=== PATIENT | female | born 1965 | race Caucasian/White ===

== ENCOUNTER 2017-01-16 15:12 | Emergency (ER) | payer OTHER ==
[2017-01-16] MEDS ORDERED: Zofran 4 MG/2 ML VIAL IV ONE (15:29)
[2017-01-16] MEDS ORDERED: Pepcid 20 MG VIAL IV ONE ×2 (15:29→15:36)
[2017-01-16] MEDS ORDERED: Sodium Chloride 0.9% 1000 ML 1,000 ML IV SCH (15:30)
[2017-01-16] MEDS ORDERED: BABY ASPIRIN 81 MG CHEW PO ONE (15:31)
[2017-01-16] MEDS ORDERED: BABY ASPIRIN 81 MG CHEW ONE (15:35)
--- NOTE | 2017-01-16 15:35 | ERPHSYRPT ---
- History of Present Illness Time Seen by Provider: 01/16/17 15:21 Source: patient Physician History: CC: V/D chest pain hx: 51 y/o patient of Dr Forrester. She has no hx of heart disease. She has had off and on chest pain for two months. Today it scared her and she did not feels right so came to ER. She has had vomiting and diarrhea since last night. She had 7 diarrhea today. She vomited several times. Not short of breath. No fever or chills. Normal urination. No injury. ALL: PCN ILL: Heart M, Diabetic Surg: Breast, hyster Social: Nonsmoker Fam: Mother nad grandmother had CHF, grandfather had heart attack. DVT. Allergies/Adverse Reactions: penicillin G Allergy (Intermediate, Verified 01/16/17 15:38) Home Medications: Alprazolam [Xanax] 0 mg PO UD 01/16/17 [History] Atenolol 0 mg PO DAILY 01/16/17 [History] Duloxetine HCl [Cymbalta] 0 mg PO DAILY 01/16/17 [History] Fenofibrate [Fenoglide] 0 mg PO DAILY 01/16/17 [History] Hydroxychloroquine Sulfate [Plaquenil] 200 mg PO DAILY 01/16/17 [History] Levothyroxine Sodium [Levo-T] 0 mcg PO DAILY 01/16/17 [History] Lisinopril 0 mg PO DAILY 01/16/17 [History] Metformin HCl 500 mg [Glucophage 500 MG] 500 mg PO BIDWM 01/16/17 [History ] Methotrexate Sodium/Pf [Methotrexate 100 mg/4 ml Vial] 0 mg IJ UD 01/16/17 [ History] Hx Tetanus, Diphtheria Vaccination/Date Given: No Hx Influenza Vaccination/Date Given: Yes Hx Pneumococcal Vaccination/Date Given: No - Review of Systems Constitutional: Malaise, Weakness, No Fever, No Chills Eyes: No Symptoms Respiratory: No Cough, No Dyspnea Cardiac: Chest Pain Abdominal/Gastrointestinal: Nausea, Vomiting, Diarrhea, No Abdominal Pain Genitourinary Symptoms: No Dysuria Musculoskeletal: No Back Pain Skin: No Rash Neurological: No Focal Weakness, No Headache, No Parasthesia All Other Systems: Reviewed and Negative - Past Medical History Pertinent Past Medical History: Yes Neurological History: Peripheral Neuropathy Cardiac History: Hypertension Respiratory History: No Pertinent History Endocrine Medical History: Diabetes Type II Musculoskeletal History: Rheumatoid Arthritis Female Reproductive Disorders: Ovarian Cancer Other Medical History: RA - Past Surgical History Past Surgical History: Yes Female Surgical History: Hysterectomy - Social History Smoking Status: Never smoker Exposure to second hand smoke: No Drug Use: none Patient Lives Alone: No - Nursing Vital Signs Nursing Vital Signs: Initial Vital Signs Temperature 99.1 F 01/16/17 15:15 Pulse Rate 90 01/16/17 15:15 Respiratory Rate 18 01/16/17 15:15 Blood Pressure 165/94 01/16/17 15:15 O2 Sat by Pulse Oximetry 97 01/16/17 15:15 Pain Scale Pain Intensity 0 - Physical Exam General Appearance: alert, other (pleasant lady) Eye Exam: PERRL/EOMI Ears, Nose, Throat Exam: normal ENT inspection, moist mucous membranes Neck Exam: normal inspection, non-tender, supple Respiratory Exam: normal breath sounds Cardiovascular Exam: regular rate/rhythm Gastrointestinal/Abdomen Exam: soft, No tenderness, No distention, No mass, No guarding Extremity Exam: normal inspection, normal range of motion, No calf tenderness, No pedal edema Neurologic Exam: alert, oriented x 3, cooperative, sensation nml, No motor deficits Skin Exam: warm, dry, No rash - Course Nursing assessment & vital signs reviewed: Yes EKG Interpreted by Me: RATE (89), Sinus Rhythm, NORMAL AXIS, NORMAL INTERVALS ( QTc 436), NORMAL QRS, NORMAL ST-T - Radiology Exams AAS X-ray Interpretation: Discussed w/ radiologist, Negative Ordered Tests: Active Orders 24 hr Category Date Time Status Cath for Specimen-Straight STAT Care 01/16/17 15:31 Active EKG-ER Only STAT Care 01/16/17 15:29 Active IV Insertion STAT Care 01/16/17 15:29 Active OBSTR/ACUTE ABDOMEN SERIES Stat Exams 01/16/17 15:30 Completed CBC W DIFF Stat Lab 01/16/17 15:47 Completed CMP Stat Lab 01/16/17 15:47 Completed TROPONIN Q3H Lab 01/16/17 15:50 Completed TROPONIN Q3H Lab 01/16/17 18:30 Completed TROPONIN Q3H Lab 01/16/17 21:30 Ordered TROPONIN Q3H Lab 01/17/17 00:30 Ordered TROPONIN Q3H Lab 01/17/17 03:30 Ordered UA W/RFX UR CULTURE Stat Lab 01/16/17 16:45 Completed Medication Summary Generic Name Dose Route Start Last Admin Trade Name Freq PRN Reason Stop Dose Admin Sodium Chloride 1,000 mls @ 500 mls/hr 01/16/17 15:30 01/16/17 15:37 Sodium Chloride 0.9% 1000 Ml IV 02/15/17 15:29 500 mls/hr .Q2H GRACE Administration Discontinued Medications Generic Name Dose Route Start Last Admin Trade Name Gómezq PRN Reason Stop Dose Admin Aspirin 162 mg 01/16/17 15:31 01/16/17 15:38 Baby Aspirin 81 Mg Chew PO 01/16/17 15:32 162 mg STAT ONE Administration Aspirin Confirm 01/16/17 15:35 Baby Aspirin 81 Mg Chew Administered 01/16/17 15:36 Dose 162 mg .ROUTE .STK-MED ONE Famotidine 20 mg 01/16/17 15:29 01/16/17 15:38 Pepcid 20 Mg Vial IV 01/16/17 15:30 20 mg STAT ONE Administration Famotidine Confirm 01/16/17 15:36 Pepcid 20 Mg Vial Administered 01/16/17 15:37 Dose 20 mg IV .STK-MED ONE Ondansetron HCl 4 mg 01/16/17 15:29 01/16/17 15:39 Zofran 4 Mg/2 Ml Vial IV 01/16/17 15:30 4 mg STAT ONE Administration Ondansetron HCl Confirm 01/16/17 15:39 Zofran 4 Mg/2 Ml Vial Administered 01/16/17 15:40 Dose 4 mg .ROUTE .STK-MED ONE Lab/Rad Data: Laboratory Result Diagrams 01/16/17 15:47 01/16/17 15:47 Laboratory Results 01/16/17 01/16/17 01/16/17 Range/Units 18:30 16:45 15:50 WBC (4.0-10.5) K/mm3 RBC (4.1-5.4) M/mm3 Hgb (12.0-16.0) gm/dl Hct (35-47) % MCV (78-100) fl MCH (26-32) pg MCHC (32-36) g/dl RDW (11.5-14.0) % Plt Count (150-450) K/mm3 MPV (6-9.5) fl Gran % (36.0-66.0) % Lymphocytes % (24.0-44.0) % Monocytes % (0.0-12.0) % Eosinophils % (0.00-5.0) % Basophils % (0.0-0.4) % Basophils # (0-0.4) Sodium (136-145) mEq/L Potassium (3.5-5.1) mEq/L Chloride (98-107) mEq/L Carbon Dioxide (21-32) mEq/L Anion Gap (5-15) MEQ/L BUN (9-20) mg/dL Creatinine (0.55-1.30) mg/dl Estimated GFR ML/MIN Glucose (70-110) MG/DL Calcium (8.5-10.1) mg/dL Total Bilirubin (0.2-1.0) mg/dL AST (15-37) U/L ALT (12-78) U/L Alkaline Phosphatase (46-116) U/L Troponin I < 0.017 < 0.017 (0.000-0.056) ng/ml Serum Total Protein (6.4-8.2) gm/dL Albumin (3.4-5.0) g/dL Ur Collection Type CCMS Urine Color YELLOW (YELLOW) Urine Appearance CLEAR (CLEAR) Urine pH 6.0 (5-6) Ur Specific [place] 1.015 (1.005-1.025) Urine Protein NEGATIVE (Negative) Urine Ketones NEGATIVE (NEGATIVE) Urine Blood NEGATIVE (0-5) Alexys/ul Urine Nitrite NEGATIVE (NEGATIVE) Urine Bilirubin NEGATIVE (NEGATIVE) Urine Urobilinogen NORMAL (0-1) mg/dL Ur Leukocyte Esterase NEGATIVE (NEGATIVE) Urine Glucose NEGATIVE (NEGATIVE) mg/dL Specimen Received 01-16-17 2995 01/16/17 01/16/17 Range/Units 15:47 15:47 WBC 10.0 (4.0-10.5) K/mm3 RBC 4.70 (4.1-5.4) M/mm3 Hgb 13.8 (12.0-16.0) gm/dl Hct 41.5 (35-47) % MCV 88.3 (78-100) fl MCH 29.4 (26-32) pg MCHC 33.3 (32-36) g/dl RDW 13.8 (11.5-14.0) % Plt Count 283 (150-450) K/mm3 MPV 10.4 H (6-9.5) fl Gran % 63.3 (36.0-66.0) % Lymphocytes % 28.6 (24.0-44.0) % Monocytes % 7.1 (0.0-12.0) % Eosinophils % 0.6 (0.00-5.0) % Basophils % 0.4 (0.0-0.4) % Basophils # 0.04 (0-0.4) Sodium 141 (136-145) mEq/L Potassium 3.7 (3.5-5.1) mEq/L Chloride 106 (98-107) mEq/L Carbon Dioxide 24.1 (21-32) mEq/L Anion Gap 14.7 (5-15) MEQ/L BUN 7 L (9-20) mg/dL Creatinine 0.82 (0.55-1.30) mg/dl Estimated GFR > 60 ML/MIN Glucose 117 H (70-110) MG/DL Calcium 9.1 (8.5-10.1) mg/dL Total Bilirubin 0.30 (0.2-1.0) mg/dL AST 24 (15-37) U/L ALT 38 (12-78) U/L Alkaline Phosphatase 86 (46-116) U/L Troponin I (0.000-0.056) ng/ml Serum Total Protein 7.9 (6.4-8.2) gm/dL Albumin 3.8 (3.4-5.0) g/dL Ur Collection Type Urine Color (YELLOW) Urine Appearance (CLEAR) Urine pH (5-6) Ur Specific [place] (1.005-1.025) Urine Protein (Negative) Urine Ketones (NEGATIVE) Urine Blood (0-5) Alexys/ul Urine Nitrite (NEGATIVE) Urine Bilirubin (NEGATIVE) Urine Urobilinogen (0-1) mg/dL Ur Leukocyte Esterase (NEGATIVE) Urine Glucose (NEGATIVE) mg/dL Specimen Received - Progress Progress Note: 01/16/17 18:17 AAS negative. She feels better. Will get second troponin. She wants to go home. 01/16/17 19:18 She still feels better. Repeat troponin undetectable. She wants to go home. Instr given. Counseled pt/family regarding: lab results, diagnosis, need for follow-up, rad results - Departure Time of Disposition: 19:21 Departure Disposition: Home Clinical Impression: Vomiting and diarrhea, Atypical chest pain Condition: Stable Critical Care Time: No Referrals: VIPUL FORRESTER [COURTESY STAFF] - Instructions: Atypical Chest Pain, Vomiting -- Adult, Diarrhea and Traveler's Diarrhea -- Adult Additional Instructions: Sip plenty of fluids. Rx zofran ODT. Follow up with Dr Forrester Thursday. No driving tonite. Prescriptions: Ondansetron [Zofran Odt] 4 mg PO Q6HPRN PRN #10 tab.rapdis PRN Reason: Nausea/Vomiting
[2017-01-16] MEDS ORDERED: Sodium Chloride 0.9% 1000 ML 1,000 ML ONE (15:36)
[2017-01-16] MEDS ORDERED: Zofran 4 MG/2 ML VIAL ONE (15:39)
[2017-01-16 15:55] LABS: BASOPHIL % 0.4 % (0.0-0.4); Eosinophil % 0.6 % (0.00-5.0); Granulocytes % 63.3 % (36.0-66.0); Lymphocytes % 28.6 % (24.0-44.0); Mean Cell Volume 88.3 fl (78-100); Mean Corpuscular Hemoglobin 29.4 pg (26-32); Mean Platelet Volume 10.4 fl (6-9.5); Monocytes % 7.1 % (0.0-12.0); Platelet Count 283 K/mm3 (150-450); Red Cell Distribution Width 13.8 % (11.5-14.0)
[2017-01-16 16:18] LABS: ALBUMIN 3.8 g/dL (3.4-5.0); ALKALINE PHOSPHATASE 86 U/L (46-116); ANION GAP 14.7 MEQ/L (5-15); BLOOD UREA NITROGEN 7 mg/dL (9-20); CHLORIDE 106 mEq/L (98-107); Carbon Dioxide 24.1 mEq/L (21-32); Glucose 117 MG/DL (70-110); Potassium 3.7 mEq/L (3.5-5.1); SGOT/AST 24 U/L (15-37); SGPT/ALT 38 U/L (12-78); SODIUM 141 mEq/L (136-145); Total Protein 7.9 gm/dL (6.4-8.2)
--- NOTE | 2017-01-16 16:25 | XRAY ---
Indication: Vomiting, diarrhea, and chest pain. Comparison: Chest radiograph January 11, 2010 2 views of the abdomen nonacute and nonobstructed. Solid organs and osseous structures unremarkable. Single PA chest again demonstrates normal heart, lungs, and bony thorax. Impression: Negative abdomen. Stable normal 1 view chest.
[2017-01-16 16:54] LABS: ADD URINE CULTURE? NO (NO); Bilirubin NEGATIVE (NEGATIVE); Blood NEGATIVE Ery/ul (0-5); COMPLETE URINE MICROSCOPIC? NO; Collection Type CCMS; Glucose NEGATIVE (NEGATIVE); Leukocyte Esterase NEGATIVE (NEGATIVE)
[2017-01-16 19:49] VITALS: BP 156/93; PULSE 89; O2SAT 97
== END 2017-01-16 19:42 | disposition home or self-care (01) ==
LOC: ED 15:12
DX: R11.2 Nausea with vomiting, unspecified (principal); R19.7 Diarrhea, unspecified; R07.89 Other chest pain; E11.9 Type 2 diabetes mellitus without complications; Z79.84 Long term (current) use of oral hypoglycemic drugs; R53.81 Other malaise; I10 Essential (primary) hypertension
CPT/HCPCS: 36000; 36415; 74022; 80053; 81002; 84484; 85025; 93005; 96360; 96361; 96374; 96375; 99284; J2405; P9612; A9270-GY

== ENCOUNTER 2019-08-31 14:07 | Emergency (ER) | payer MEDICAID ==
[2019-08-31] MEDS ORDERED: Adacel Vial IM ONE ×2 (14:26→14:33)
[2019-08-31] MEDS ORDERED: XYLOCAINE 1% HCL 20 ML MDV IJ ONE (14:26)
[2019-08-31 14:31] VITALS: BP 183/100; PULSE 115; O2SAT 98
[2019-08-31] MEDS ORDERED: XYLOCAINE 1% HCL 20 ML MDV ONE (14:33)
--- NOTE | 2019-08-31 14:44 | ERPHSYRPT ---
- History of Present Illness Time Seen by Provider: 08/31/19 14:20 Source: patient Exam Limitations: no limitations Patient Subjective Stated Complaint: Finger injury Triage Nursing Assessment: Patient ambulated into ED and transferred self to bed. Patient A+O X3. Patient's skin pink, warm and dry. Patient complains of left hand, 5th digit injury after tripping in her garage. Patient complains of pain 8/10 constant sharp pain. Patient unable to bend finger. Patient has cm X cm laceration to Laceration noted to below middle knuckle cm X cm Physician History: Patient is a 54-year-old female presents to our ED for evaluation of injury to her left fifth digit. Patient was at home tripped and landed on her garage floor. No other injuries reported. Injury occurred just prior to arrival. Pain described as an ache that is well localized. No radiation. Pain worse with movement and palpation. Pain improved with rest. No others reported. Patient voices no other complaints at this time. Tetanus is not up-to-date. Timing/Duration: today Severity: moderate Modifying Factors: Improves With: movement, rest Associated Symptoms: denies symptoms Allergies/Adverse Reactions: penicillin G Allergy (Intermediate, Verified 08/31/19 14:12) Home Medications: Atenolol 25 mg PO DAILY 01/16/17 [History] Duloxetine HCl [Cymbalta] 60 mg PO DAILY 01/16/17 [History] Fenofibrate [Fenoglide] 145 mg PO DAILY 01/16/17 [History] Levothyroxine Sodium [Levo-T] 25 mcg PO DAILY 01/16/17 [History] Metformin HCl 500 mg [Glucophage 500 MG] 500 mg PO BIDWM 01/16/17 [History ] lisinopriL [Lisinopril] 10 mg PO DAILY 01/16/17 [History] Adalimumab [Humira] 40 mg SQ UD 07/28/17 [History] Dicyclomine HCl 20 mg [Bentyl 20 mg] 10 mg PO TID 07/28/17 [History] Ergocalciferol (Vitamin D2) [Vitamin D2] 50,000 unit PO Q7D 07/28/17 [History] Hydroxyzine HCl 25 mg [Atarax 25 mg] 25 mg PO TID 07/28/17 [History] metHOTREXate sodium [Methotrexate] 2.5 mg PO DAILY 07/28/17 [History] Celecoxib [Celebrex] 200 mg PO DAILY 09/14/17 [History] Gabapentin 300 mg PO HS 09/14/17 [History] Hx Tetanus, Diphtheria Vaccination/Date Given: No Hx Influenza Vaccination/Date Given: Yes Hx Pneumococcal Vaccination/Date Given: Yes Immunizations Up to Date: Yes Travel Risk - International Travel Have you traveled outside of the country in past 3 weeks: No Have you or anyone close to you been diagnosed with or: No Do your reside in a community with a known COVID-19 case?: Yes If Yes where:: [facility] - Coronavirus Screening Has patient experienced Coronavirus symptoms: No - Review of Systems Constitutional: No Symptoms, No Fever, No Chills Eyes: No Symptoms Ears, Nose, & Throat: No Symptoms Respiratory: No Symptoms, No Cough, No Dyspnea Cardiac: No Symptoms, No Chest Pain, No Edema, No Syncope Abdominal/Gastrointestinal: No Symptoms, No Abdominal Pain, No Nausea, No Vomiting, No Diarrhea Genitourinary Symptoms: No Symptoms, No Dysuria Musculoskeletal: No Symptoms, No Back Pain, No Neck Pain Skin: No Symptoms, No Rash Neurological: No Symptoms, No Dizziness, No Focal Weakness, No Sensory Changes Psychological: No Symptoms Endocrine: No Symptoms Hematologic/Lymphatic: No Symptoms Immunological/Allergic: No Symptoms All Other Systems: Reviewed and Negative - Past Medical History Pertinent Past Medical History: Yes Neurological History: Peripheral Neuropathy Cardiac History: Hypertension Respiratory History: No Pertinent History Endocrine Medical History: Diabetes Type II Musculoskeletal History: Rheumatoid Arthritis Female Reproductive Disorders: Ovarian Cancer Other Medical History: RA - Past Surgical History Past Surgical History: Yes Musculoskeletal: Orthopedic Surgery Female Surgical History: Hysterectomy Other Surgical History: THERMAL ABLATION - Social History Smoking Status: Never smoker Exposure to second hand smoke: No Drug Use: none Patient Lives Alone: Yes - Female History Hx Last Menstrual Period: hysterectomy - Nursing Vital Signs Nursing Vital Signs: Initial Vital Signs Temperature 98.0 F 08/31/19 14:12 Pulse Rate 115 H 08/31/19 14:12 Respiratory Rate 18 08/31/19 14:12 Blood Pressure 183/100 08/31/19 14:12 O2 Sat by Pulse Oximetry 98 08/31/19 14:12 Pain Scale Pain Intensity 8 - Physical Exam General Appearance: no apparent distress, alert Eye Exam: PERRL/EOMI, eyes nml inspection Ears, Nose, Throat Exam: normal ENT inspection, TMs normal, pharynx normal, moist mucous membranes Neck Exam: normal inspection, non-tender, supple, full range of motion Respiratory Exam: normal breath sounds, lungs clear, No respiratory distress Cardiovascular Exam: regular rate/rhythm, normal heart sounds, normal peripheral pulses Gastrointestinal/Abdomen Exam: soft, normal bowel sounds, No tenderness, No mass Back Exam: normal inspection, normal range of motion, No CVA tenderness, No vertebral tenderness Extremity Exam: normal inspection, normal range of motion, pelvis stable, lacerations (Patient has a 1 cm laceration to the volar aspect of her left fifth digit. Tendon function appears to be intact. No injury to the nail bed or nail plate.) Neurologic Exam: alert, oriented x 3, cooperative, normal mood/affect, nml cerebellar function, nml station & gait, sensation nml, No motor deficits Skin Exam: normal color, warm, dry, No rash Lymphatic Exam: No adenopathy SpO2 Interpretation: normal SpO2: 98 O2 Delivery: Room Air Procedures - Joint Reduction Timeout: Performed Joint Reduction Site: Left, finger, 5th digit Conscious Sedation: No Reduction Attempts: 1 Pre-Procedure Neurovascular Exam: neurovascular intact, well perfused, neuro deficit Post Procedure Neurovascular Exam: neurovascular intact, good alignment Post Joint Reduction Film: joint reduced - Laceration/Wound Repair Finger Wound Location: Left Wound Length (cm): 1 Wound's Depth, Shape: into muscle Wound Explored: no foreign body noted Irrigated: Yes Hibiclens Prep: Yes Anesthesia: local, 1% Lidocaine Volume Anesthetic (ccs): 4 Wound Debrided: minimal Wound Repaired With: sutures Suture Size/Type: 5-0, nylon Number of Sutures: 5 Layer Closure?: No Sterile Dressing Applied?: Yes Splint Applied?: Yes Type of Splint Applied: [place]um[place] Sling Applied?: Yes Progress: 08/31/19 16:08 NVI distally post reduction and suture repair. - Course Nursing assessment & vital signs reviewed: Yes - Radiology Exams Hand X-ray Interpretation: Teleradiologist Report (Posteriorly displaced PIP. Postreduction hand film reveals successful reduction of previously displaced left fifth digit PIP joint.) Ordered Tests: Active Orders 24 hr Category Date Time Status HAND (MINIMUM 3 VIEWS) Stat Exams 08/31/19 14:20 Completed HAND (MINIMUM 3 VIEWS) Stat Exams 08/31/19 15:48 Completed Medication Summary Discontinued Medications Generic Name Dose Route Start Last Admin Trade Name Rosario PRN Reason Stop Dose Admin Diphtheria/Tetanus/Acell Pertussis 0.5 ml 08/31/19 14:26 08/31/19 14:41 Adacel Vial IM 08/31/19 14:27 0.5 ml .ONCE ONE Administration Diphtheria/Tetanus/Acell Pertussis Confirm 08/31/19 14:33 Adacel Vial Administered 08/31/19 14:34 Dose 0.5 ml IM .STK-MED ONE Lidocaine HCl 5 ml 08/31/19 14:26 08/31/19 14:42 Xylocaine 1% Hcl 20 Ml Mdv IJ 08/31/19 14:27 5 ml STAT ONE Administration Lidocaine HCl Confirm 08/31/19 14:33 Xylocaine 1% Hcl 20 Ml Mdv Administered 08/31/19 14:34 Dose 5 ml .ROUTE .STK-MED ONE - Progress Progress: improved Progress Note: 08/31/19 16:11 Patient reassessed. Pain resolved after administration of lidocaine. X-ray revealed posteriorly dislocated PIP joint of left fifth digit. The joint was manually reduced. Follow-up x-rays reveal successful reduction. Wound was closed with 5-0 nylon. 5 sutures placed. Wound was copiously irrigated by RN. AlumaFoam splint applied. Patient referred to orthopedic surgery for follow- up. 08/31/19 16:22 Tetanus updated. Counseled pt/family regarding: diagnosis, need for follow-up, rad results - Departure Departure Disposition: Home Clinical Impression: Fall, Dislocation of PIP joint of finger, Laceration of finger Condition: Stable Critical Care Time: No Referrals: SHERLY ONEAL NP [Primary Care Provider] - ORTHO - EVER STERN NP [NON-STAFF PHY W/O PRIVILEGES] - Instructions: Finger Dislocation (DC), Finger Sprain (DC), Finger Fracture (DC) Additional Instructions: Discharge/Care Plan MEHREEN PATRICIO was seen on 08/31/19 in the Emergency Room. The patient was counseled regarding Diagnosis,Lab results, Imaging studies, need for follow up and when to return to the Emergency Room. Prescriptions given: Discharge Note I have spoken with the patient and/or caregivers. I have explained the patient' s condition, diagnosis and treatment plan based on the information available to me at this time. I have answered the patient's and/or caregiver's questions and addressed any concerns. The patient and/or caregivers have as good understanding of the patient's diagnosis, condition and treatment plan as can be expected at this point. The vital signs have been stable. The patient's condition is stable and appropriate for discharge from the emergency department. The patient will pursue further outpatient evaluation with the primary care physician or other designated or consulting physician as outlined in the discharge instructions. The patient and/or caregivers are agreeable to this plan of care and follow-up instructions have been explained in detail. The patient and/or caregivers have received these instruction. The patient/and or caregivers are aware that any significant change in condition or worsening of symptoms should prompt an immediate return to this or the closest emergency department or call 911. Prescriptions: Clindamycin HCl 150 mg [Cleocin 150 mg Capsule] 2 cap PO TID 7 Days #21 capsule
--- NOTE | 2019-08-31 15:18 | XRAY ---
Indication: 5th digit pain and laceration following fall. Comparison: None 3 views of the left hand demonstrates 5th PIP posterior dislocation with soft tissue swelling. Tiny well-circumscribed ulnar styloid tip ossification either developmental versus old injury. No other bony, articular, or soft tissue abnormalities.
--- NOTE | 2019-08-31 15:59 | XRAY ---
Indication: Post reduction 5th digit. Comparison: Taken earlier in the day. 3 views of the left hand demonstrates successful reduction 5th PIP dislocation with continued soft tissue swelling. No other bony, articular, or soft tissue abnormalities.
== END 2019-08-31 16:31 | disposition home or self-care (01) ==
LOC: ED 14:07
DX: S63.297A Dislocation of distal interphalangeal joint of left little finger, initial encounter (principal); S61.213A Laceration without foreign body of left middle finger without damage to nail, initial encounter; W01.0XXA Fall on same level from slipping, tripping and stumbling without subsequent striking against object, initial encounter; Y93.9 Activity, unspecified; Y92.094 Garage of other non-institutional residence as the place of occurrence of the external cause; Z79.899 Other long term (current) drug therapy; G62.9 Polyneuropathy, unspecified; I10 Essential (primary) hypertension; E11.9 Type 2 diabetes mellitus without complications; M06.9 Rheumatoid arthritis, unspecified; Z85.43 Personal history of malignant neoplasm of ovary
CPT/HCPCS: 12001; 26770; 73130; 90471; 90715; 99284